=== PATIENT | male | born 1980 | race African-American/Black ===

== ENCOUNTER 2020-01-05 00:45 | Emergency (ER) | payer MEDICAID, OTHER ==
[~2020-01-05] VITALS: Ht 177.8 cm; Wt 77.1 kg
--- NOTE | 2020-01-05 00:50 | NUR ---
PATIENT SEEN AND CLEARED BY DR MARION. PATIENT SHOUTING IN HOSPITAL, UNCOOPERATIVE.
--- NOTE | 2020-01-05 00:55 | NUR ---
PT WAS AGRESSIVE, USING PROFANITY AND RACIAL SLURRS TO STAFF AND [place] [employer]. PT REFUSED TO GIVE MEDICAL STAFF MEDICAL INFORMATION.
--- NOTE | 2020-01-05 01:00 | NUR ---
PT IS SCREAMING PROFANITY AND IS AGRESSIVE AND NON COMPLIANT. ERMD ASSESSED PT.
--- NOTE | 2020-01-05 01:01 | NUR ---
PT DENIES MEDICAL HISTORY AND STATED, "NO" TO ALLERGIES.
--- NOTE | 2020-01-05 01:01 | NUR ---
PT DENIED PAIN OR INJURY. ERMD MADE AWARE.
--- NOTE | 2020-01-05 01:02 | NUR ---
Patient discharged with v/s stable. Written and verbal after care instructions given and explained. Patient verbalized understanding.PT WAS DISCHARGED AND ESCORTED BY ROBYN JUAN. PT in custody. All questions addressed prior to discharge. Advised to follow up with PMD.
== END 2020-01-05 01:02 ==
LOC: MED 00:45
DX: R45.1 Restlessness and agitation (principal); Z02.89 Encounter for other administrative examinations
CPT/HCPCS: 99283